=== PATIENT | male | born 1975 | race African-American/Black ===

== ENCOUNTER 2024-12-28 16:55 | Emergency (ER) | payer MEDICAID ==
[~2024-12-28] VITALS: Ht 180.3 cm; Wt 82.0 kg
[2024-12-28 17:02] VITALS: TEMP 36.9; O2SAT 97
[2024-12-28] MEDS: ACETAMINOPHEN 325MG TABLET PO ONE (20:01)
[2024-12-28] MEDS: KETOROLAC 30MG/ML VIAL IM ONE (20:01)
[2024-12-28] MEDS ORDERED: IBUP-2029 MT (20:32)
[2024-12-28 22:19] VITALS: BP 144/90; PULSE 63; RESP 18; O2SAT 96
== END 2024-12-28 22:37 | disposition home or self-care (01) ==
LOC: ER 16:55
DX: M25.572 Pain in left ankle and joints of left foot (principal); M25.472 Effusion, left ankle; Z79.899 Other long term (current) drug therapy
CPT/HCPCS: 73610; 29515; 96372; 99283; J1885; Z7610 ×2; A6449